=== PATIENT | male | born 1950 | race Hispanic/Latino ===

== ENCOUNTER 2017-04-06 00:20 | Emergency (ER) | payer SELFPAY ==
[2017-04-06] MEDS ORDERED: KETOROLAC TROMETHAMINE 30MG/ML ONE (00:36)
[2017-04-06] MEDS ORDERED: LIDOCAINE 2%-EPI 1:200,000 20 ML VIAL IJ ONE (00:36)
== END 2017-04-06 01:24 | disposition home or self-care (01) ==
LOC: EDH 00:20
DX: K04.7 Periapical abscess without sinus (principal); E78.5 Hyperlipidemia, unspecified; I10 Essential (primary) hypertension
CPT/HCPCS: 41800; 96372; 99283; J1885; J3490